=== PATIENT | female | born 1955 | race Caucasian/White ===

== ENCOUNTER → 2024-03-16 | Outpatient (CLI) | payer MEDICARE, OTHER | END | disposition home or self-care (01) | LOC: LAB 19:28 | PROVIDERS: ATTEND Internal Medicine | DX: J96.21 Acute and chronic respiratory failure with hypoxia (principal); I10 Essential (primary) hypertension ==

== ENCOUNTER 2024-07-09 21:30 | Emergency (ER) | payer OTHER, MEDICAID ==
[~2024-07-09] VITALS: Ht 167.6 cm; Wt 164.3 kg
[~2024-07-09 21:30] MED LIST: ACIDOPHILUS1 EAC4 PEG; AMIODARONE HYD200 MG PEG; AQUA CARE71 GM T; BISACODYL10 MG R; BUSPIRONE HCL10 MG PEG; CELEXA10 MG PEG; CHOLESTYRAMINE P4 GM PEG; ENTRESTO 24 MG1 EACH PEG; ENTRESTO 24 MG1 EACH PO; FEOSOL,FER300 MG/5 M PEG; FLEET ENEMA 13133 ML R; FLUONAZOLE200 M1 PO; HYDROCODONE-AC1 EAC1 PEG; INSULIN LI100 UNIT/1 SQ; JARDIANCE10 MG PO; JARDIANCE25 MG PEG; LASIX40 MG PEG; LIPITOR40 MG PEG; LOMOTIL 2.5-0.1 EACH PEG; MELATONIN3 MG PEG; MEROPENEM-1 GM/50 ML IV; METOPROLOL25 MG PEG; MIDODRINE HCL5 M1 PEG; MILK OF MA400 MG/52 PEG; NEURONTIN300 MG PEG; NITROSTAT0.4 MG SL; ONDANSETRON HYDR4 MG PEG; PACERONE400 MG PEG; SILVADENE20 GM T; Synthroid,Levo75 MCG PEG; TRANSDERM-SCOP1 EAC1 TD; TYLENOL325 M2 PEG; VENTOLIN 02.5 MG/3 M INH; XANAX0.5 MG PEG; ZOSYN 3.373.375 GM/1 IV
[2024-07-10] MEDS ORDERED: BUMETANIDE 1 MG/4 ML VIAL IV ONE (01:35)
== END 2024-07-10 05:43 ==
LOC: ED 21:30
DX: J96.01 Acute respiratory failure with hypoxia (principal); I11.0 Hypertensive heart disease with heart failure; I50.23 Acute on chronic systolic (congestive) heart failure; E11.9 Type 2 diabetes mellitus without complications; J44.9 Chronic obstructive pulmonary disease, unspecified; F32.A Depression, unspecified; F41.9 Anxiety disorder, unspecified; Z79.899 Other long term (current) drug therapy; Z88.5 Allergy status to narcotic agent; Z90.89 Acquired absence of other organs; Z95.810 Presence of automatic (implantable) cardiac defibrillator

== ENCOUNTER 2024-07-26 10:46 | Inpatient (IN) | payer OTHER, MEDICAID ==
[~2024-07-26] VITALS: Ht 162.6 cm; Wt 151.0 kg
[2024-07-26 10:54] VITALS: BP 125/63
[2024-07-26] MEDS ORDERED: methylPREDNISolone sod succ 125 MG VIAL IV ONE (10:55)
[2024-07-26] MEDS ORDERED: Albuterol Sulfate 2.5 MG/3 ML VIAL NEB ONE (10:55)
[2024-07-26 11:14] LABS: BASO # 0.1 10*3/uL (0.0-0.1); BASO % 0.4 % (0.0-1.0); EOS # 0.3 10*3/uL (0.0-0.4); EOS % 1.8 % (1.0-4.0); HEMATOCRIT 27.7 % (37.0-47.0); MEAN CELL VOLUME 102.2 fl (81.0-99.0); MEAN CORPUSCULAR HGB 31.4 pg (27.0-31.0); MEAN CORPUSCULAR HGB CONC 30.7 g/dl (33.0-37.0); MEAN PLATELET VOLUME 12.1 fl (9.6-12.3); MONO # 1.4 10*3/uL (0.1-1.0); MONO % 7.4 % (3.0-9.0); NEUT # 15.5 10*3/uL (2.3-7.9); NEUT % 82.9 % (47.0-73.0); NUCLEATED RED BLOOD CELL 0.1 % (0.0-0.0); PLATELET COUNT AUTOMATED 418 10*3/uL (130-400); RED BLOOD COUNT 2.71 10*6/uL (4.10-5.10); RED CELL DISTRI WIDTH 19.6 % (0-14.5); WHITE BLOOD COUNT 18.6 10*3/uL (4.8-10.8)
[2024-07-26] MEDS ORDERED: COREG3.125 MG PEG (11:30)
[2024-07-26] MEDS ORDERED: FUROSEMIDE 40 MG/4 ML VIAL IV ONE (11:40)
[2024-07-26 11:41] LABS: ABG O2 SATURATION 98.9 % (94.0-98.0); ARTERIAL BLOOD GAS PH 7.376 (7.350-7.450); ARTERIAL BLOOD GAS PO2 131.2 mmHg (83.0-108.0)
[2024-07-26 11:43] LABS: BUN 22 mg/dl (9-23); CHLORIDE 90 mmol/L (98-107); POTASSIUM 5.3 mmol/L (3.4-5.1)
[2024-07-26 11:43] LABS: ABG BASE EXCESS 12.2 mmol/L (-2.0-3.0)
[2024-07-26] MEDS ORDERED: cefTRIAXone Sodium 1 GM/10 ML SYR IV ONE (11:45)
[2024-07-26] MEDS ORDERED: AZITHROMYCIN 250 ML IV ONE (11:45)
[2024-07-26 12:04] VITALS: BP 106/52
[2024-07-26 12:25] VITALS: BP 104/52
[2024-07-26 13:20] VITALS: BP 119/53
[2024-07-26] MEDS ORDERED: ACETAMINOPHEN 325 MG TAB PO PRN (15:25)
[2024-07-26] MEDS ORDERED: Magnesium Hydroxide 30 ML UDC PO PRN (15:25)
[2024-07-26] MEDS ORDERED: BISACODYL 10 MG SUPP R PRN (15:25)
[2024-07-26] MEDS ORDERED: Ondansetron Hydrochloride 4 MG/2 ML VIAL IV PRN (15:25)
[2024-07-26] MEDS ORDERED: ACETAMINOPHEN 650 MG SUPP R PRN (15:25)
[2024-07-26] MEDS ORDERED: BISACODYL 5 MG TAB PO PRN (15:25)
[2024-07-26] MEDS ORDERED: TEMAZEPAM 15 MG CAP PO PRN (15:25)
[2024-07-26] MEDS ORDERED: DEXTROSE 10 % IN WATER 250 ML IV PRN (15:45)
[2024-07-26] MEDS ORDERED: Albuterol Sulf/Ipratropium 3 ML VIAL NEB PRN (15:45)
[2024-07-26 16:00] VITALS: BP 117/53
[2024-07-26] MEDS ORDERED: INSULIN LISPRO 1 UNIT/0.01 ML SQ SCH (16:30)
[2024-07-26] MEDS ORDERED: FUROSEMIDE 40 MG/4 ML VIAL IV SCH (18:00)
[2024-07-26 18:57] LABS: BILIRUBIN Negative (Negative); BLOOD Negative (Negative); CLARITY Clear (Clear); COLOR Yellow (Yellow); GLUCOSE 2+ (Negative); KETONE Negative (Negative); LEUKO ESTERASE Negative (Negative); NITRITE Negative (Negative); SPECIFIC GRAVITY <= 1.005 (1.001-1.030); UROBILINOGEN 0.2 E.U./dl (0.0-1.0)
[2024-07-26 19:16] LABS: YEAST 3+
[2024-07-26 19:17] LABS: BACTERIA 1+; RBC 0-2 rbc/hpf (0-2); WBC 0-2 wbc/hpf (0-5)
[2024-07-26 20:00] VITALS: BP 117/53
[2024-07-26 20:41] LABS: BUN 23 mg/dl (9-23); CHLORIDE 89 mmol/L (98-107); POTASSIUM 4.7 mmol/L (3.4-5.1)
[2024-07-26] MEDS ORDERED: methylPREDNISolone sod succ 40 MG VIAL IV SCH (22:00)
[2024-07-27] VITALS: BP 112/51
[2024-07-27 04:00] VITALS: BP 120/60
[2024-07-27 05:28] LABS: ALKALINE PHOSPHATASE 81 U/L (46-116); BUN 26 mg/dl (9-23); CHLORIDE 90 mmol/L (98-107); CHOLESTEROL 101 mg/dL (<200); FREE T4 0.65 ng/dl (0.89-1.76); LDL CHOLESTEROL 40 mg/dL (9-159); POTASSIUM 4.2 mmol/L (3.4-5.1); SGPT/ALT 22 U/L (5-49); TOTAL PROTEIN 7.6 gm/dL (6.0-8.0); TRIGLYCERIDES 120 mg/dl (<150)
[2024-07-27 05:56] LABS: HEMATOCRIT 27.9 % (37.0-47.0); MEAN CELL VOLUME 103.3 fl (81.0-99.0); MEAN CORPUSCULAR HGB 29.6 pg (27.0-31.0); MEAN CORPUSCULAR HGB CONC 28.7 g/dl (33.0-37.0); MEAN PLATELET VOLUME 10.8 fl (9.6-12.3); NUCLEATED RED BLOOD CELL 0.1 % (0.0-0.0); PLATELET COUNT AUTOMATED 321 10*3/uL (130-400); RED CELL DISTRI WIDTH 17.6 % (0-14.5)
[2024-07-27] MEDS ORDERED: Pantoprazole Sodium 40 MG VIAL IV SCH (06:00)
[2024-07-27 06:15] LABS: MANUAL DIFF REFLEX YES
[2024-07-27 06:39] LABS: TOTAL CELLS COUNTED 100 #CELLS
[2024-07-27 06:40] LABS: PLATELET SUFFICIENCY NORMAL (NORMAL)
[2024-07-27 07:18] LABS: VITAMIN D, 25-HYDROXY 46.4 ng/mL (30-100)
[2024-07-27 08:00] VITALS: BP 114/58
[2024-07-27] MEDS ORDERED: Enoxaparin Sodium 40 MG/0.4 ML SYR SC SCH (10:00)
[2024-07-27] MEDS ORDERED: AZITHROMYCIN 250 ML IV SCH (11:00)
[2024-07-27 12:00] VITALS: BP 144/68
[2024-07-27] MEDS ORDERED: cefTRIAXone Sodium 1 GM in SYRINGE INFUSION 10 ML IV SCH (12:00)
[2024-07-27] MEDS ORDERED: Melatonin 3 MG TABLET PEG PRN (13:05)
[2024-07-27] MEDS ORDERED: Acetaminophen/Hydrocodone 5 MG/325 MG TABLET PO PRN (13:35)
[2024-07-27] MEDS ORDERED: NITROGLYCERIN 0.4 MG BOT SL PRN (13:35)
[2024-07-27] MEDS ORDERED: Midodrine Hydrochloride 5 MG TAB PEG SCH (14:00)
[2024-07-27] MEDS ORDERED: busPIRone Hydrochloride 10 MG TAB PEG SCH (14:00)
[2024-07-27] MEDS ORDERED: Scopolamine 1 PATCH PATCH T SCH (14:00)
[2024-07-27 16:00] VITALS: BP 131/62
[2024-07-27 20:00] VITALS: BP 134/65
[2024-07-27] MEDS ORDERED: GABAPENTIN 300 MG CAP PEG SCH (22:00)
[2024-07-27] MEDS ORDERED: CARVEDILOL 3.125 MG TAB PEG SCH (22:00)
[2024-07-27] MEDS ORDERED: Metoprolol Tartrate 25 MG TAB PEG SCH (22:00)
[2024-07-27] MEDS ORDERED: SILVER SULFADIAZINE 25 GM TUBE T SCH (22:00)
[2024-07-27] MEDS ORDERED: ALPRAZolam 0.5 MG TAB PEG SCH (22:00)
[2024-07-27] MEDS ORDERED: SACUBITRIL/VALSARTAN 24 MG-26 MG TABLET PO SCH (22:00)
[2024-07-28] VITALS: BP 135/59
[2024-07-28 04:00] VITALS: BP 150/70
[2024-07-28] MEDS ORDERED: Levothyroxine Sodium 125 MCG TAB PO SCH (06:00)
[2024-07-28 06:26] LABS: BASO % 0.1 % (0.0-1.0); HEMATOCRIT 29.2 % (37.0-47.0); MEAN CELL VOLUME 102.5 fl (81.0-99.0); MEAN CORPUSCULAR HGB 29.8 pg (27.0-31.0); MEAN CORPUSCULAR HGB CONC 29.1 g/dl (33.0-37.0); MONO # 0.5 10*3/uL (0.1-1.0); MONO % 4.6 % (3.0-9.0); NEUT # 8.9 10*3/uL (2.3-7.9); NEUT % 88.2 % (47.0-73.0); NUCLEATED RED BLOOD CELL 0.4 % (0.0-0.0); PLATELET COUNT AUTOMATED 331 10*3/uL (130-400); RED BLOOD COUNT 2.85 10*6/uL (4.10-5.10); RED CELL DISTRI WIDTH 17.4 % (0-14.5); WHITE BLOOD COUNT 10.1 10*3/uL (4.8-10.8)
[2024-07-28 06:49] LABS: CHLORIDE 89 mmol/L (98-107); POTASSIUM 4.4 mmol/L (3.4-5.1)
[2024-07-28 06:57] LABS: BUN 37 mg/dl (9-23)
[2024-07-28 08:00] VITALS: BP 141/67
[2024-07-28] MEDS ORDERED: Amiodarone Hydrochloride 200 MG TAB PEG SCH (10:00)
[2024-07-28] MEDS ORDERED: CITALOPRAM 20 MG TAB PEG SCH (10:00)
[2024-07-28] MEDS ORDERED: ATORVASTATIN CALCIUM 40 MG TABLET PEG SCH (10:00)
[2024-07-28] MEDS ORDERED: EMPAGLIFLOZIN 10 MG TABLET PO SCH (10:00)
[2024-07-28] MEDS ORDERED: Water, Sterile 10 ML VIAL IJ ONE (11:30)
[2024-07-28 11:35] VITALS: BP 129/72
[2024-07-28] MEDS ORDERED: MUPIROCIN 15 GM TUBE T SCH (12:05)
[2024-07-28] MEDS ORDERED: HEEL PROTECTOR DEVICE ONE (12:34)
[2024-07-28] MEDS ORDERED: FOAM BANDAGE 1 EACH BANDAGE T ONE (12:34)
[2024-07-28] MEDS ORDERED: FOAM BANDAGE HEEL T ONE (12:34)
[2024-07-28 16:00] VITALS: BP 126/66
[2024-07-28 20:00] VITALS: BP 154/75
[2024-07-28] MEDS ORDERED: Metoprolol Tartrate 25 MG TAB PEG SCH (22:00)
[2024-07-29] VITALS: BP 165/80
[2024-07-29 04:00] VITALS: BP 154/73
[2024-07-29 05:35] LABS: BUN 39 mg/dl (9-23); CHLORIDE 89 mmol/L (98-107); POTASSIUM 4.1 mmol/L (3.4-5.1)
[2024-07-29 06:16] LABS: HEMATOCRIT 30.6 % (37.0-47.0); MEAN CELL VOLUME 102.7 fl (81.0-99.0); MEAN CORPUSCULAR HGB 29.5 pg (27.0-31.0); MEAN CORPUSCULAR HGB CONC 28.8 g/dl (33.0-37.0); MEAN PLATELET VOLUME 10.8 fl (9.6-12.3); NUCLEATED RED BLOOD CELL 0.1 10*3/uL (0.0-0.0); NUCLEATED RED BLOOD CELL 1.1 % (0.0-0.0); PLATELET COUNT AUTOMATED 325 10*3/uL (130-400); RED BLOOD COUNT 2.98 10*6/uL (4.10-5.10); RED CELL DISTRI WIDTH 17.4 % (0-14.5); WHITE BLOOD COUNT 8.4 10*3/uL (4.8-10.8)
[2024-07-29 06:25] LABS: MANUAL DIFF REFLEX YES
[2024-07-29 07:00] LABS: PLATELET SUFFICIENCY NORMAL (NORMAL); POLYCHROMASIA SLIGHT; STOMATOCYTE MODERATE; TOTAL CELLS COUNTED 100 #CELLS
[2024-07-29 08:00] VITALS: BP 141/72
[2024-07-29] MEDS ORDERED: FUROSEMIDE 40 MG/4 ML VIAL IV SCH (10:00)
[2024-07-29] MEDS ORDERED: FERROUS SULFATE 300 MG/5 ML UDC PEG SCH (10:00)
[2024-07-29 12:00] VITALS: BP 146/74
[2024-07-29] MEDS ORDERED: LOPRESSOR25 MG PEG (12:05)
[2024-07-29] MEDS ORDERED: ZITHROMAX250 MG PO (12:05)
[2024-07-29] MEDS ORDERED: PREDNISONE10 MG PO (12:05)
== END 2024-07-29 15:51 | DRG 208 ==
LOC: ED 10:46 → EDHOLD 12:32 → ICCU 12:32
PROVIDERS: Emergency Medicine; Internal Medicine; Student in an Organized Health Care Education/Training Program; ADMIT Internal Medicine; ATTEND Internal Medicine
PROC: 5A1945Z Respiratory Ventilation, 24-96 Consecutive Hours (ICD-10-PCS; principal; 2024-07-26)
DX: J96.21 Acute and chronic respiratory failure with hypoxia (principal); E43 Unspecified severe protein-calorie malnutrition; I50.23 Acute on chronic systolic (congestive) heart failure; J81.0 Acute pulmonary edema; J44.1 Chronic obstructive pulmonary disease with (acute) exacerbation; T17.500A Unspecified foreign body in bronchus causing asphyxiation, initial encounter; R65.10 Systemic inflammatory response syndrome (SIRS) of non-infectious origin without acute organ dysfunction; I11.0 Hypertensive heart disease with heart failure; R00.1 Bradycardia, unspecified; D53.9 Nutritional anemia, unspecified; E87.8 Other disorders of electrolyte and fluid balance, not elsewhere classified; E89.0 Postprocedural hypothyroidism; E78.5 Hyperlipidemia, unspecified; E11.9 Type 2 diabetes mellitus without complications; I25.10 Atherosclerotic heart disease of native coronary artery without angina pectoris; Z93.0 Tracheostomy status; Z79.4 Long term (current) use of insulin; Y93.89 Activity, other specified; Y92.89 Other specified places as the place of occurrence of the external cause; Y99.8 Other external cause status; Z79.899 Other long term (current) drug therapy; Z88.5 Allergy status to narcotic agent; Z79.1 Long term (current) use of non-steroidal anti-inflammatories (NSAID)

== ENCOUNTER 2024-10-09 06:16 | Emergency (ER) | payer OTHER ==
[~2024-10-09] VITALS: Wt 148.8 kg
[~2024-10-09 06:16] MED LIST changes: +COREG3.125 MG PEG; +LOPRESSOR25 MG PEG; +PREDNISONE10 MG PO; +ZITHROMAX250 MG PO
[2024-10-09] MEDS ORDERED: DIATRIZOATE MEG/DIATRIZO. SOD 120 ML BOT PO ONE (07:20)
[2024-10-09] MEDS ORDERED: DIATRIZOATE MEG/DIATRIZO. SOD 120 ML BOT ONE (07:52)
== END 2024-10-09 08:59 | disposition home or self-care (01) ==
LOC: ED 06:16
DX: K94.23 Gastrostomy malfunction (principal); E66.9 Obesity, unspecified; Z88.5 Allergy status to narcotic agent; Z79.899 Other long term (current) drug therapy; Z95.810 Presence of automatic (implantable) cardiac defibrillator; Z68.30 Body mass index [BMI] 30.0-30.9, adult

== ENCOUNTER 2025-02-14 09:24 | Emergency (ER) | payer OTHER ==
[~2025-02-14] VITALS: Ht 167.6 cm; Wt 136.5 kg
[~2025-02-14 09:24] MED LIST changes: +Ipratropium Brom3 ML NEB; +Klor-Con/Ef25 MEQ PO; +XANAX0.5 MG PO
[2025-02-14] MEDS ORDERED: diphenhydrAMINE hydrochloride 25 MG/10 ML UDC PO ONE (09:35)
== END 2025-02-14 09:57 | disposition home or self-care (01) ==
LOC: ED 09:24
DX: R00.0 Tachycardia, unspecified (principal); Z66 Do not resuscitate; J44.9 Chronic obstructive pulmonary disease, unspecified; E11.9 Type 2 diabetes mellitus without complications; I10 Essential (primary) hypertension; F41.9 Anxiety disorder, unspecified; F32.A Depression, unspecified; Z88.5 Allergy status to narcotic agent